=== PATIENT | female | born 1935 | race Caucasian/White ===

== ENCOUNTER 2017-03-11 09:03 | Inpatient (IN) | payer OTHER, BC ==
[~2017-03-11] VITALS: Ht 152.4 cm; Wt 58.3 kg
--- NOTE | ~2017-03-11 | HC ---
[facility] [place] [address] CONSULTATION Name: JASON JENKINS Room #: 437-P ADM IN M.R.#: [id number] Admission: 03/11/17 Attend Phys: Grover Adorno DO Discharge: Date of : 37 Report #: [id number] THIS REPORT FOR: //name// CC: Venkata Alcantara MD [facility] Grover Jones MD PRIMARY CARE PHYSICIAN: John Jones M.D. HISTORY OF PRESENT ILLNESS: The patient is a 81-year-old single white female who I was asked to see in the hospital today after she had a fall. The patient has an extensive past medical history. She has a long history of coronary artery disease. She apparently had a previous myocardial infarction in 2002 and had a coronary stent placed at [facility]. She previously was followed by Dr. Sandoval. She had another myocardial infarction in 2008 and underwent balloon angioplasty. Recently she has been followed by my partner, Dr. Smart. She was admitted here to [facility] in 2012 with unstable angina. She underwent a cardiac catheterization by Dr. Neri. There was no significant restenosis of the stents in the LAD diagonal or right coronary artery. Ejection fraction normal. It was recommended she be treated medically. The patient was last admitted here to [facility] in 2014 after an exacerbation of a COPD. She last saw Dr. Smart in the cardiology clinic in October when she was doing well. She actually underwent a nuclear stress test in November of this year that showed no evidence of ischemia with an ejection fraction of 74%. The patient has dementia and uses a walker. She does fall frequently. According to the daughter who is present, she was actually just admitted to [facility] a month ago with blurred vision. She is felt to have had a TIA. Neurology recommended Plavix, but Dr. Smart thought that she was at risk for bleeding. She was sent to rehab and is now back home. Unfortunately yesterday, the patient was in the bathroom, got up from the bathroom and fell. Paramedics were called. She was brought here to [facility] by ambulance. She is found to have a fracture. I was asked to see her preop evaluation. The patient has had no significant chest pain, shortness of breath, palpitations, increasing edema. PAST MEDICAL HISTORY: Otherwise significant for hysterectomy, cholecystectomy, cataract extraction, bladder sling, right ankle fracture, hypertension, and hyperlipidemia. CURRENT MEDICATIONS: Consists of Lipitor, Paxil. She is no longer on lisinopril. ALLERGIES: She has a previous intolerance to ASPIRIN, PENICILLIN, and CODEINE. FAMILY HISTORY: No history of heart disease. [facility] [address] [place] [address] CONSULTATION Name: JASON JENKINS QUIN Room #: 437-P [facility] IN M.R.#: [id number] Admission: 03/11/17 Attend Phys: Grover Adorno DO Discharge: Date of : 37 Report #: [id number] SOCIAL HISTORY: She is , currently lives with her daughter in [place], [place]. She recently quit smoking although she has been a smoker for years. No alcohol abuse. REVIEW OF SYSTEMS: She has had a history of peptic ulcer in the past. No liver disease, no kidney disease, no cancer. No psychiatric illness. No chronic skin condition. PHYSICAL EXAMINATION: GENERAL: Revealed an elderly female lying in bed. She appeared in no distress. VITAL SIGNS: She had a blood pressure of 160/80, pulse is 68. She was afebrile. HEENT: She was anicteric. Conjunctivae are pink. Mucous membranes are moist. NECK: Veins do not appear distended. No carotid bruits. CHEST: Clear to auscultation. CARDIOVASCULAR: Regular rate and rhythm. ABDOMEN: Soft. EXTREMITIES: Had no edema. Dorsalis pedis pulses cannot be palpated. SKIN: Cool and dry. NEUROLOGIC: The patient was not oriented to place or time. PSYCHIATRIC: Mood appeared appropriate. LABORATORY DATA: Her ECG showed a sinus rhythm, occasional PVC. 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 She had multiple x-rays since she came in yesterday and included a chest x-ray that showed normal heart size and clear lung chapa. CT scan of the head performed without contrast showed no acute abnormality. Lab work, sodium 130, potassium 3.7, creatinine 1.2, glucose 79. White blood cell count 4.7, hematocrit 32. IMPRESSION AND RECOMMENDATION: 1. Recurrent fall. Recommend a walker. 2. Hip fracture. Apparently, a conservative approach as planned. The patient would be at risk for cardiac complications of surgery due to her extensive smoking history and a history of coronary artery disease. I would try to avoid surgery if possible. 3. Hypertension. I would recommend resuming her ORQUIDEA inhibitor. 4. Recent transient ischemic attack. I did recommend 81 mg of aspirin a day and hoped that the patient will be able to tolerate it. 5. Hyperlipidemia. I would recommend a statin drug. 6. Previous tobacco abuse. Fortunately, the patient just recently stopped [facility] [address] [place] [address] CONSULTATION Name: JASON JENKINS QUIN Room #: 437-P ADM IN M.R.#: [id number] Admission: 03/11/17 Attend Phys: Grover Adorno DO Discharge: Date of : 37 Report #: [id number] smoking. 7. Dementia. The patient cannot live by herself anymore. <ELECTRONICALLY SIGNED> By: Venkata Alcantara MD, FACC 03/16/17811 1431 1913 Venkata Alcantara MD, FACC /nt
--- NOTE | ~2017-03-11 | O ---
[facility] [place] [address] OPERATIVE REPORT Name: JASON JENKINS Room #: 437-P ADM IN M.R.#: [id number] Admission: 03/11/17 Attend Phys: Grover Adorno DO Discharge: Date of : 37 Report #: [id number] THIS REPORT FOR: //name// CC: Grover Jones DATE OF SERVICE: 03/16/2017 PREOPERATIVE DIAGNOSIS: Displaced unstable left proximal femoral neck fracture. POSTOPERATIVE DIAGNOSIS: Displaced unstable left proximal femoral neck fracture. PROCEDURE: Left proximal femoral hemiarthroplasty. SURGEON: Venkata Louise M.D. INDICATIONS: This 81-year-old female is frail and has mild dementia. She fell injuring the left hip, initially x-rays reveal a slightly impacted but well-aligned high femoral neck fracture. I discussed with the patient and her family treatment options and they elected to try to avoid surgery and continue nonsurgical management. We have tried to mobilize her gently, but followup x-rays now reveal the femoral head to be displaced and clearly unstable. Given this, I have discussed again with the patient and her daughters treatment options and they have elected to go ahead with a cemented hemiarthroplasty of the left hip at this time. DESCRIPTION OF PROCEDURE: The patient was taken to the operating room where she is placed under general anesthesia. Prophylactic intravenous antibiotics were administered. She was turned to the right lateral decubitus position. The left hip, thigh and leg were meticulously prepped and draped. A slightly curving skin incision was made centered over the greater trochanter and extending posteriorly. This was carried through gluteus and fascia to expose the posterior aspect of the hip joint. The short external rotators and capsule were taken down and tagged with several #1 Tevdek sutures. The femoral neck was found to be fractured and unstable. The head was removed and measured at 45 mm in diameter. The neck was trimmed down to an appropriate level and the canal opened with reamers and hand broaches. The Ignacio Secur-Fit stem system was utilized and it appeared that a size 5 cemented stem fit most appropriately. A trial reduction was performed and a +0 mm neck length combined with a 45 mm bipolar head fit nicely. This resulted in good alignment, range of motion, stability and leg length. The trial components were removed. The canal was thoroughly irrigated and dried. A cement restrictor was placed. Methyl methacrylate cement was mixed and injected into the femoral canal. The Ignacio size 5 cement stem was inserted, placing this in about 15-20 degrees of anteversion. Excess cement was removed from . A +0 neck length with a [facility] [address] [place] [address] OPERATIVE REPORT Name: JASON JENKINS Room #: 437-P [facility] IN M.R.#: [id number] Admission: 03/11/17 Attend Phys: Grover Adorno DO Discharge: Date of : 37 Report #: [id number] 45-mm bipolar head was then inserted. The hip was reduced. Alignment, range of motion, stability and leg lengths were once again assessed and felt to be satisfactory. The capsule and short external rotators were repaired back to the bone using #1 Tevdek sutures, passed through drill holes in the greater trochanter. This added significant hip stability. A single Hemovac was left deep to the fascia exiting through a separate stab incision. The fascia was then closed with multiple #1 Vicryl sutures. The subcutaneous tissues were closed with 0 Monocryl and the skin was closed with skin jasbir. A sterile dressing was applied, and the patient was awakened and returned to recovery room in good condition. <ELECTRONICALLY SIGNED> By: Venkata Louise MD 03/21/17 0740 1327 1404 Venkata Louise MD /nt
--- NOTE | ~2017-03-11 | HC ---
[facility] [place] [address] CONSULTATION Name: JASON JENKINS Room #: 437-P ADM IN M.R.#: [id number] Admission: 03/11/17 Attend Phys: Grover Adorno DO Discharge: Date of : 37 Report #: [id number] THIS REPORT FOR: //name// CC: Grover Jones DATE OF SERVICE: 03/11/2017 CHIEF COMPLAINT: Left femoral neck fracture. HISTORY OF PRESENT ILLNESS: This 81-year-old female lives with family assistance at home. She has some chronic medical problems including history of cardiac disease with IA and several stents. She also is somewhat weak and frail. Family states that she has been ambulatory with a walker and some assistance. She has balance problems and some weakness. She apparently fell at home injuring the left hip and came to the hospital today. X-rays here including plain x-rays and CT scan reveal a mildly impacted fracture of the left femoral neck. No other fractures are identified. At the time of my evaluation, the patient's family is not present, but I have spoken with them by phone. The patient is mildly confused, but is responsive to my questions. She denies any other areas of significant discomfort and complains of only mild left hip pain. She seems to have good movement of both upper extremities without much discomfort. She notes a bit of right-sided anterior chest wall pain, but this is mild. She is not having any neck, mid back or low back discomfort. The right lower extremity seems to be stable and demonstrates satisfactory alignment and range of motion without much discomfort. The left lower extremity also appears to be in normal alignment. She has satisfactory range of motion of the left hip, but there is mild discomfort with rotation. There is no obvious instability, deformity or shortening. She notes a bit of pain radiating toward the mid thigh, but no pain below the knee. The left knee demonstrates satisfactory alignment and range of motion without much discomfort. Distal left lower extremity appears to be normal. X-rays of the pelvis and left hip and left femur as well as CT scan confirmed what appears to be a very mildly impacted fracture of the left femoral neck in slight valgus position. This appears to be stable with only minimal displacement. There is mild degenerative change at the left hip, but no other significant structural abnormalities. The surrounding bone appears to be intact. IMPRESSION AND PLAN: Mildly impacted stable left femoral neck fracture. I have discussed this with the patient and also with her daughter by phone. I have explained that we may consider either nonsurgical management with partial weightbearing protection using a walker for the next 6 weeks or surgical stabilization. I think there is a reasonably good chance the fracture would [address] [address] CONSULTATION Name: JASON JENKINS Room #: 437-P [facility] IN M.R.#: [id number] Admission: 03/11/17 Attend Phys: Grover Adorno DO Discharge: Date of : 37 Report #: [id number] heal in. If she can avoid excessive weightbearing or new falls, we could certainly improve the likelihood of successful union by placing 2 or 3 percutaneous screws. If this approach fails or family wants to be more conservative, then hemiarthroplasty would be a more definitive procedure, which would allow her to bear full weight without much risk. I have discussed these with the patient and family reviewing the potential advantages and disadvantages of each. At this point, they are uncertain what they would like to do, but seem all much more in favor of nonsurgical management. They note that she really is not having marked discomfort and apparently are concerned about any anesthetic and surgery. They are hopeful that this could be managed without surgical intervention even minor repair with percutaneous screws. Given this, they would prefer to talk with the rest of the family and talk together with the patient tomorrow before making any decisions. I do not think we will make any plans for any surgery tomorrow. I will talk with the patient and family again tomorrow. If they decide to go ahead with either percutaneous screw stabilization or hemiarthroplasty, then we could proceed on Monday if or schedule will allow. In the interim, this should give sufficient time for cardiac clearance and any other general medical workup. Thank you for allowing me to participate in her care. <ELECTRONICALLY SIGNED> By: Venkata Louise MD 03/12/17 1051 1721 1918 Venkata Louise MD /nt
--- NOTE | ~2017-03-11 | HC ---
[facility] [place] [address] CONSULTATION Name: JENKINSJASON BOYD QUIN Room #: 437-P ADM IN M.R.#: [id number] Admission: 03/11/17 Attend Phys: Grover Adorno DO Discharge: Date of : 37 Report #: [id number] THIS REPORT FOR: //name// CC: Grover Jones HISTORY OF PRESENT ILLNESS: The patient is a 81-year-old white female who had problems with feeling dizzy, fell on her left side. She sustained a left mildly impacted stable left femoral neck fracture. Orthopedics has seen her. Options have been discussed, but at the current time it looks like the plan is for conservative management with weightbearing on that left lower extremity less than 20 pounds. We are seeing her in rehabilitation medicine consultation. PAST MEDICAL HISTORY: Includes prior [place] in 2002, with stenting at [facility]. She had a TIA approximately a month ago and apparently was on the rehab eaton at [facility]. From there, she was able to discharge back home. Past medical history otherwise includes COPD, cardiac stents times 3, [place] times 1, hypertension and migraines. PAST SURGICAL HISTORY: Includes cholecystectomy, hysterectomy, compression fracture of the spine, shattered right ankle with plate and 10 screws. HABITS: Former smoker, quit less than equal to a year. No history of alcohol use. FAMILY HISTORY: Includes heart disease, mother and father and diabetes, brother. Recreational drug abuse, no. ALLERGIES: ASPIRIN, CODEINE, Motrin, IODINE, and LATEX allergy. SOCIAL HISTORY: Daughter lives with her, [place], [place], house 4 steps in. She did not utilize gait aids typically premorbidly. REVIEW OF SYSTEMS: No complaints of chest pain, shortness of breath, or abdominal discomfort. No complaints of appetite change. No diaphoresis. No headache. No symptoms or focal extremity pain complaints other than the noted left hip discomfort, which appears relatively mild. PHYSICAL EXAMINATION: GENERAL: Small statured, thin 81-year-old white female, in no obvious distress. The patient is alert. She is pleasant. VITAL SIGNS: Last recorded temperature 98, pulse 76, respirations 20, and blood pressure 115/69. HEENT: Appeared to be benign. NEUROLOGIC: Cranial nerves are grossly intact. Facies are symmetric. She has some mild confusion as to where she is, but she is cooperative. She is on nasal prong O2. EXTREMITIES: Functional range of motion of both upper extremities with strength grade 4-/5. DTRs are trace to 1. Lower extremities, no focal calf swelling, functional range of motion. Strength is grade 4-/5. There is no distal lower extremity [facility] [address] [place] [address] CONSULTATION Name: JASON JENKINS Room #: 437-P [facility] IN M.R.#: [id number] Admission: 03/11/17 Attend Phys: Gorver Adorno DO Discharge: Date of : 37 Report #: [id number] edema. Lower extremities appear warm and well perfused. She is min assist with sit to stand and is ambulating 15 feet min assist with a front-wheeled walker. She has some difficulty maintaining her weightbearing precautions after the first couple hops. ASSESSMENT: A 81-year-old white female with the following problem list: 1. Left femoral neck fracture noted to be mildly impacted, is limited to less than 20 pounds weightbearing. 2. Coronary artery disease with prior myocardial infarction and stenting. 3. Recent transient ischemic attack. 4. Dehydration. 5. Hypertension. 6. Chronic obstructive pulmonary disease. PLAN: Unfortunatley the patient would not meet criteria for another acute in-hospital inpatient rehabilitation stay. We would agree with half-way facility options as you are considering. Thank you for asking us to assist in this patient's care. <ELECTRONICALLY SIGNED> By: Venkata Delgado MD 03/17/17 1551 1109 1327 Venkata Delgado MD /nt
--- NOTE | ~2017-03-11 | EKG ---
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 : 1935 Requested By: Johanna Landry Order Number: [id number] MD: Kofi Loco Measurements Intervals [place] Rate: 75 P: 63 MS: 215 QRS: -52 QRSD: 133 T: 31 QT: 438 QTc: 490 Interpretive Statements Sinus rhythm Multiple ventricular premature complexes Borderline prolonged MS interval Probable left atrial enlargement RBBB and LAFB Compared to ECG 05/07/2016 13:41:14 Ventricular premature complex(es) now present Electronically Signed On 03-12-2017 11:45:55 CDT by Kofi Loco [email or web address] <ELECTRONICALLY SIGNED> By: Kofi Loco MD, [facility] 03/12/17 1145 0933 0933 Kofi Loco MD, [facility] /EPI
[~2017-03-11 09:03] MED LIST: ACETAMINOPHEN325 M1 PO; ADVAIR HFA115 MCG/21 INH; AMOXICILLIN500 M1 PO; AZITHROMYCIN 2250 MG PO; BOOST237 M1 PO; CALCIUM 600 +1 EAC8 PO; CEPACOL SORE T1 EAC7 MM; CEPACOL SORE T1 EAC8 PO; COLACE100 MG PO; COZAAR 50 MG TA50 M1 PO; DICLOFENAC NA PO; DOXYCYCLINE 10100 M1 PO; DOXYCYCLINE 10100 MG PO; DUONEB 2.5-0.5 M3 ML INH; FLAGYL500 MG PO; HAIR SKIN NAIL1 EACH PO; HAIR, SKIN & N1 EAC1 PO; HYDROCHLOROTH12.5 M1 PO; HYDROCHLOROTH12.5 M2 PO; HYDROCHLOROTH12.5 MG PO; HYDROCHLOROTHIA25 M2 GT; HYDROCHLOROTHIA25 M2 PO; IPRAT-ALBUT 0.5-3 ML IH; LASIX 20 MG TAB20 MG PO; LEVAQUIN 500 M500 M1 PO; LEVAQUIN 500 M500 M4 PO; LIDODERM 5%1 PATC1 TRANSDERM; LISINOPRIL10 MG PO; LISINOPRIL20 MG PO; MAPAP500 M1 PO; MELATONIN3 MG; METOPROLOL SUCC25 M1 PO; MILK OF MA2400 MG/10 PO; MOM PO; MUCINEX TA600 MG/TA1 PO; MULTI VITAMIN1 EACH PO; NITROGLYCERIN0.4 MG SUBLING; NORCO 5-325 TA1 EACH PO; NORVASC5 MG PO; OMEGA-31000 M1 PO; OMEPRAZOLE20 M2 PO; PLAVIX 75 MG TA75 M1 PO; PREDNISONE 10 M10 MG PO; PREDNISONE 20 M20 M1 PO; PREDNISONE 20 M20 MG PO; PRILOSEC20 MG PO; PRINIVIL20 MG PO; PROTONIX40 M1 PO; ROBAXIN 750 MG750 M1 PO; SIMVASTATIN40 MG PO; TRAMADOL 50 MG50 MG PO; TYLENOL325 MG PO; ULTRAM 50MG TAB50 MG PO; VENTOLIN HFA 1818 GM INH; VOLTAREN GEL 1100 G2 PO; XANAX 0.25 MG0.25 MG PO; ZPAK PO
[2017-03-11 09:05] VITALS: BP 169/81
[2017-03-11 09:44] LABS: ABSOLUTE NEUTROPHILS 4.1 thou/uL (1.4-8.2); BASOPHILS 1.2 % (0.0-2.0); EOSINOPHILS 5.6 % (0.0-3.0); HEMATOCRIT 36.4 % (37.0-47.0); HEMOGLOBIN 12.1 gm/dL (12.0-15.0); LYMPHOCYTES 16.6 % (24.0-44.0); MCH 30.5 pg (26.0-34.0); MCHC 33.3 g/dL (28.0-37.0); MCV 91.5 fL (80.0-100.0); MONOCYTES 9.1 % (1.0-8.0); PLATELET COUNT 230 thou/uL (150-400); POLYS 67.5 % (36.0-66.0); RBC 3.98 mil/uL (4.20-5.00); RDW 13.8 % (10.5-14.5); WBC 6.1 thou/uL (4.0-11.0)
[2017-03-11 09:45] LABS: MANUAL DIFF NO
[2017-03-11 09:50] LABS: CREATININE 1.2 mg/dL (0.6-1.0); POTASSIUM 3.7 mmol/L (3.5-5.1)
[2017-03-11] MEDS ORDERED: ATORVASTATIN CA40 MG PO (10:40)
[2017-03-11] MEDS ORDERED: APAP650 PO (10:40)
[2017-03-11] MEDS ORDERED: TUMS ULTRA400 MG PO (10:41)
[2017-03-11] MEDS ORDERED: PLAVIX 75 MG TA75 M1 PO (10:42)
[2017-03-11] MEDS ORDERED: VITAMIN D1000 UNI1 PO (10:42)
[2017-03-11] MEDS ORDERED: B12INJ PO (10:42)
[2017-03-11] MEDS ORDERED: RAZADYNE ER16 MG PO (10:43)
[2017-03-11] MEDS ORDERED: ALLFEN400 MG PO (10:44)
[2017-03-11] MEDS ORDERED: PAXIL10 MG PO (10:45)
[2017-03-11] MEDS ORDERED: MELATONIN3 MG PO (10:45)
[2017-03-11 12:14] VITALS: BP 157/68
[2017-03-11 12:42] VITALS: BP 166/89
[2017-03-11 16:16] VITALS: BP 177/57
[2017-03-11 19:00] VITALS: BP 149/73
[2017-03-11 23:55] VITALS: BP 170/79
[2017-03-12 03:41] VITALS: BP 142/74
[2017-03-12 05:18] LABS: ABSOLUTE NEUTROPHILS 2.8 thou/uL (1.4-8.2); BASOPHILS 1.3 % (0.0-2.0); EOSINOPHILS 7.3 % (0.0-3.0); HEMATOCRIT 32.1 % (37.0-47.0); LYMPHOCYTES 20.6 % (24.0-44.0); MCHC 34.2 g/dL (28.0-37.0); MCV 90.6 fL (80.0-100.0); MONOCYTES 10.2 % (1.0-8.0); PLATELET COUNT 200 thou/uL (150-400); POLYS 60.6 % (36.0-66.0); RBC 3.54 mil/uL (4.20-5.00); RDW 13.8 % (10.5-14.5); WBC 4.7 thou/uL (4.0-11.0)
[2017-03-12 05:22] LABS: MANUAL DIFF NO
[2017-03-12 05:27] LABS: CALCIUM 8.2 mg/dL (8.5-10.1); CREATININE 1.2 mg/dL (0.6-1.0); POTASSIUM 3.7 mmol/L (3.5-5.1)
[2017-03-12 08:36] VITALS: BP 172/90
[2017-03-12 16:36] VITALS: BP 142/69
[2017-03-12 19:36] VITALS: BP 189/88
[2017-03-13 00:36] VITALS: BP 134/86
[2017-03-13 04:21] VITALS: BP 170/88
[2017-03-13 05:59] LABS: ABSOLUTE NEUTROPHILS 3.7 thou/uL (1.4-8.2); BASOPHILS 0.8 % (0.0-2.0); EOSINOPHILS 7.7 % (0.0-3.0); HEMATOCRIT 33.7 % (37.0-47.0); HEMOGLOBIN 11.7 gm/dL (12.0-15.0); MCHC 34.6 g/dL (28.0-37.0); MCV 89.4 fL (80.0-100.0); MONOCYTES 9.5 % (1.0-8.0); PLATELET COUNT 211 thou/uL (150-400); RBC 3.76 mil/uL (4.20-5.00); RDW 13.9 % (10.5-14.5); WBC 5.9 thou/uL (4.0-11.0)
[2017-03-13 06:01] LABS: MANUAL DIFF NO
[2017-03-13 06:06] LABS: CALCIUM 8.4 mg/dL (8.5-10.1); CREATININE 1.2 mg/dL (0.6-1.0); POTASSIUM 3.8 mmol/L (3.5-5.1)
[2017-03-13 08:00] VITALS: BP 115/69
[2017-03-13 16:00] VITALS: BP 130/79
[2017-03-13 20:14] VITALS: BP 156/79
[2017-03-14 05:15] VITALS: BP 138/65
[2017-03-14 07:05] LABS: MCH 30.7 pg (26.0-34.0); WBC 7.1 thou/uL (4.0-11.0)
[2017-03-14 07:07] LABS: ABSOLUTE NEUTROPHILS 5.2 thou/uL (1.4-8.2); BASOPHILS 0.6 % (0.0-2.0); EOSINOPHILS 2.9 % (0.0-3.0); HEMATOCRIT 34.2 % (37.0-47.0); HEMOGLOBIN 11.8 gm/dL (12.0-15.0); LYMPHOCYTES 14.4 % (24.0-44.0); MCHC 34.6 g/dL (28.0-37.0); MCV 88.8 fL (80.0-100.0); MONOCYTES 8.3 % (1.0-8.0); PLATELET COUNT 231 thou/uL (150-400); POLYS 73.8 % (36.0-66.0); RBC 3.85 mil/uL (4.20-5.00)
[2017-03-14 07:09] LABS: MANUAL DIFF NO
[2017-03-14 07:15] LABS: CALCIUM 8.6 mg/dL (8.5-10.1); CREATININE 1.1 mg/dL (0.6-1.0); POTASSIUM 3.9 mmol/L (3.5-5.1)
[2017-03-14 07:24] VITALS: BP 172/84
[2017-03-14 12:33] VITALS: BP 194/64
[2017-03-14 15:46] VITALS: BP 149/82
[2017-03-14 19:29] VITALS: BP 1867/98; BP 187/98
[2017-03-15 00:28] VITALS: BP 139/77
[2017-03-15 03:36] VITALS: BP 146/70
[2017-03-15 08:00] VITALS: BP 127/96
[2017-03-15] MEDS ORDERED: ENOXAPARIN30 MG/0.1 SUBQ (11:38)
[2017-03-15] MEDS ORDERED: ALTACE10 MG PO (11:38)
[2017-03-15 16:18] VITALS: BP 194/92
[2017-03-15 19:38] VITALS: BP 124/62
[2017-03-16] VITALS (11 sets, daily range): BP systolic 92–161; BP diastolic 58–95
[2017-03-16 08:44] LABS: ABSOLUTE NEUTROPHILS 4.6 thou/uL (1.4-8.2); BASOPHILS 0.6 % (0.0-2.0); EOSINOPHILS 2.4 % (0.0-3.0); HEMATOCRIT 32.7 % (37.0-47.0); HEMOGLOBIN 11.3 gm/dL (12.0-15.0); LYMPHOCYTES 13.4 % (24.0-44.0); MCH 30.8 pg (26.0-34.0); MCHC 34.7 g/dL (28.0-37.0); PLATELET COUNT 252 thou/uL (150-400); POLYS 71.6 % (36.0-66.0); RBC 3.68 mil/uL (4.20-5.00); RDW 13.9 % (10.5-14.5); WBC 6.5 thou/uL (4.0-11.0)
[2017-03-16 08:51] LABS: CALCIUM 8.6 mg/dL (8.5-10.1); CREATININE 1.3 mg/dL (0.6-1.0); POTASSIUM 3.7 mmol/L (3.5-5.1)
[2017-03-16 09:06] LABS: MANUAL DIFF NO
[2017-03-16 18:52] LABS: HEMATOCRIT 29.2 % (37.0-47.0); HEMOGLOBIN 9.9 gm/dL (12.0-15.0); MCH 30.6 pg (26.0-34.0); RBC 3.24 mil/uL (4.20-5.00); RDW 13.6 % (10.5-14.5); WBC 10.7 thou/uL (4.0-11.0)
[2017-03-17 04:22] VITALS: BP 104/57
[2017-03-17 06:28] LABS: HEMATOCRIT 23.5 % (37.0-47.0); MCH 30.5 pg (26.0-34.0); MCHC 34.1 g/dL (28.0-37.0); MCV 89.6 fL (80.0-100.0); RBC 2.63 mil/uL (4.20-5.00); RDW 13.4 % (10.5-14.5); WBC 7.2 thou/uL (4.0-11.0)
[2017-03-17 08:00] VITALS: BP 122/68
[2017-03-17 17:00] VITALS: BP 104/58
[2017-03-17 19:49] VITALS: BP 118/69
[2017-03-18 03:15] LABS: HEMATOCRIT 21.1 % (37.0-47.0); HEMOGLOBIN 7.4 gm/dL (12.0-15.0); MCH 30.9 pg (26.0-34.0); MCHC 34.9 g/dL (28.0-37.0); MCV 88.6 fL (80.0-100.0); RBC 2.38 mil/uL (4.20-5.00); RDW 13.4 % (10.5-14.5); WBC 7.5 thou/uL (4.0-11.0)
[2017-03-18 04:00] VITALS: BP 120/59
[2017-03-18 07:18] VITALS: BP 134/70
[2017-03-18 12:30] LABS: HEMATOCRIT 22.3 % (37.0-47.0); HEMOGLOBIN 7.8 gm/dL (12.0-15.0); MCH 30.7 pg (26.0-34.0); MCHC 34.7 g/dL (28.0-37.0); MCV 88.3 fL (80.0-100.0); RBC 2.53 mil/uL (4.20-5.00); RDW 13.6 % (10.5-14.5); WBC 7.1 thou/uL (4.0-11.0)
[2017-03-18 12:33] LABS: CALCIUM 8.1 mg/dL (8.5-10.1); CREATININE 1.2 mg/dL (0.6-1.0); POTASSIUM 3.9 mmol/L (3.5-5.1)
[2017-03-18 15:27] VITALS: BP 116/63
[2017-03-18 19:25] VITALS: BP 102/56; BP 107/56
[2017-03-19 03:40] VITALS: BP 163/74
[2017-03-19 05:40] LABS: HEMATOCRIT 21.3 % (37.0-47.0); HEMOGLOBIN 7.4 gm/dL (12.0-15.0); MCH 30.7 pg (26.0-34.0); MCHC 34.5 g/dL (28.0-37.0); RBC 2.39 mil/uL (4.20-5.00); RDW 13.5 % (10.5-14.5); WBC 7.1 thou/uL (4.0-11.0)
[2017-03-19 05:50] LABS: CALCIUM 7.8 mg/dL (8.5-10.1); POTASSIUM 3.7 mmol/L (3.5-5.1)
[2017-03-19 09:00] VITALS: BP 152/87
[2017-03-19 16:13] VITALS: BP 157/93
[2017-03-19 19:36] VITALS: BP 143/67
[2017-03-20 03:58] VITALS: BP 143/80
[2017-03-20 06:17] LABS: MCHC 35.2 g/dL (28.0-37.0); MCV 88.3 fL (80.0-100.0); RBC 2.2 mil/uL (4.20-5.00); RDW 13.5 % (10.5-14.5); WBC 5.9 thou/uL (4.0-11.0)
[2017-03-20 06:22] LABS: HEMOGLOBIN 6.8 gm/dL (12.0-15.0)
[2017-03-20 06:23] LABS: HEMATOCRIT 19.4 % (37.0-47.0)
[2017-03-20 06:27] LABS: CALCIUM 7.8 mg/dL (8.5-10.1); POTASSIUM 3.8 mmol/L (3.5-5.1)
[2017-03-20 08:00] VITALS: BP 153/82
[2017-03-20 15:12] VITALS: BP 127/56
[2017-03-20 15:17] VITALS: BP 125/48; BP 139/64
[2017-03-20 18:43] VITALS: BP 139/64
[2017-03-20 19:51] VITALS: BP 134/67
[2017-03-21 03:47] VITALS: BP 180/99
[2017-03-21 04:48] LABS: HEMATOCRIT 23.7 % (37.0-47.0); HEMOGLOBIN 8.3 gm/dL (12.0-15.0); MCH 30.8 pg (26.0-34.0); MCHC 34.9 g/dL (28.0-37.0); MCV 88.3 fL (80.0-100.0); RBC 2.68 mil/uL (4.20-5.00); RDW 13.3 % (10.5-14.5); WBC 7.8 thou/uL (4.0-11.0)
[2017-03-21 04:54] LABS: CALCIUM 7.9 mg/dL (8.5-10.1); POTASSIUM 4.1 mmol/L (3.5-5.1)
[2017-03-21 08:11] VITALS: BP 151/77
[2017-03-21 10:18] VITALS: BP 151/77
== END 2017-03-21 16:07 | DRG 469 ==
LOC: ER 09:03 → EROBS 11:27 → 4S 11:27
PROVIDERS: Family Medicine; Internal Medicine; Nurse Practitioner Family; Orthopaedic Surgery
PROC: 0SRS0J9 Replacement of Left Hip Joint, Femoral Surface with Synthetic Substitute, Cemented, Open Approach (ICD-10-PCS; principal; 2017-03-16)
PROC: 30233N1 Transfusion of Nonautologous Red Blood Cells into Peripheral Vein, Percutaneous Approach (ICD-10-PCS; 2017-03-20)
DX: S72.002A Fracture of unspecified part of neck of left femur, initial encounter for closed fracture (principal); G93.40 Encephalopathy, unspecified; E87.1 Hypo-osmolality and hyponatremia; D62 Acute posthemorrhagic anemia; I10 Essential (primary) hypertension; G43.909 Migraine, unspecified, not intractable, without status migrainosus; I25.10 Atherosclerotic heart disease of native coronary artery without angina pectoris; E78.5 Hyperlipidemia, unspecified; F03.90 Unspecified dementia, unspecified severity, without behavioral disturbance, psychotic disturbance, mood disturbance, and anxiety; J44.9 Chronic obstructive pulmonary disease, unspecified; E86.0 Dehydration; R41.0 Disorientation, unspecified; Z95.5 Presence of coronary angioplasty implant and graft; I25.2 Old myocardial infarction; Z90.710 Acquired absence of both cervix and uterus; Z90.49 Acquired absence of other specified parts of digestive tract; Z88.6 Allergy status to analgesic agent; Z91.041 Radiographic dye allergy status; Z91.040 Latex allergy status; Z98.49 Cataract extraction status, unspecified eye; Z86.73 Personal history of transient ischemic attack (TIA), and cerebral infarction without residual deficits; Z87.891 Personal history of nicotine dependence; Z83.3 Family history of diabetes mellitus; Z95.1 Presence of aortocoronary bypass graft; Z79.82 Long term (current) use of aspirin; Z79.899 Other long term (current) drug therapy; Z82.49 Family history of ischemic heart disease and other diseases of the circulatory system; W18.39XA Other fall on same level, initial encounter; Y93.89 Activity, other specified; Y92.89 Other specified places as the place of occurrence of the external cause; Y99.8 Other external cause status
CPT/HCPCS: 10100; 50010; 50101; 50382; 50414; 51057; 51130; 51225; 51412; 53000; 55381; 56521; 56525; 56527; 62110; 62900; 70005

== ENCOUNTER 2017-03-24 16:54 | Inpatient (IN) | payer OTHER, BC ==
[~2017-03-24] VITALS: Ht 162.6 cm; Wt 86.8 kg
--- NOTE | ~2017-03-24 | EKG ---
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 ARRIAGA : 1935 Requested By: Meghan Fernandez Order Number: [id number] MD: Kofi Loco Measurements Intervals [place] Rate: 89 P: 44 [place]: 224 QRS: 246 QRSD: 134 T: 3 QT: 400 QTc: 487 Interpretive Statements Sinus rhythm Prolonged [place] interval Incomplete RBBB Compared to ECG 03/11/2017 09:33:07 Ventricular premature complex(es) no longer present Electronically Signed On 03-25-2017 16:41:58 CDT by Kofi Loco [email or web address] <ELECTRONICALLY SIGNED> By: Kofi Loco MD, [facility] 03/25/17 1641 1714 1714 Kofi Loco MD, [facility] /EPI
--- NOTE | ~2017-03-24 | H ---
[facility] [place] [address] HISTORY AND PHYSICAL Name: JASON JENKINS Room #: 440-P ADM IN M.R.#: [id number] Admission: 03/24/17 Attend Phys: Iraj Downs MD Discharge: Date of : 37 Report #: [id number] THIS REPORT FOR: //name// CC: Sophia Downs DATE OF SERVICE: 03/24/2017 CHIEF COMPLAINT: Weakness and low hemoglobin. HISTORY OF PRESENT ILLNESS: The patient is a 81-year-old female with history of dementia, coronary artery disease, status post stent, hypertension, and COPD, was referred from rehab center secondary to low hemoglobin. The patient had a stroke on 02/20/2017. The patient was admitted end of February here for syncope and left femoral neck fracture. The patient underwent left hip hemiarthroplasty on 03/16/2017. Postoperatively, the patient had anemia secondary to acute blood loss. Her hemoglobin on 03/16/2017, was 11.3. Postoperatively, she dropped to 9.9. Her hemoglobin did drop all the way down to 6.8, on 03/20/2017. The patient received a unit of packed RBC. Repeat hemoglobin on 03/21/2017, was 8.3. Subsequently, the patient was transferred to a prison unit for physical therapy. According to the patient's daughter, the patient has been mostly staying in the bed. Apparently, she has felt a little better over the last couple of days. The patient complains of generalized weakness. At present, the patient denies any dizziness or shortness of breath. Her hemoglobin at the prison unit was 7.2, which prompted them to send her to the emergency room. In the ER, her hemoglobin is 7.6. The patient denies any chest pain. PAST MEDICAL HISTORY: Significant for hypertension, coronary artery disease status post stent, COPD, hysterectomy, cholecystectomy, spine fracture, right ankle fracture, migraine headache. FAMILY HISTORY: Significant for heart disease and diabetes. SOCIAL HISTORY: Former smoker. No alcohol abuse or illicit drug abuse. HOME MEDICATIONS: Reviewed. ALLERGIES: She is allergic to IODINE, CODEINE, IBUPROFEN, LATEX allergy. Please look at the nursing documentation for the reaction. REVIEW OF SYSTEMS: CONSTITUTIONAL: She has gained some weight. No fever or chills. EYES: No change in vision. THROAT: Denies any sore throat. [facility] [address] [place] [address] HISTORY AND PHYSICAL Name: JASON JENKINS [facility] Room #: 440-P [facility] IN .R.#: [id number] Admission: 03/24/17 Attend Phys: Iraj Downs MD Discharge: Date of : 37 Report #: [id number] CARDIOVASCULAR: No chest pain or dizziness. MUSCULOSKELETAL: She complains of generalized weakness. RESPIRATORY: No cough or expectoration. GASTROINTESTINAL: No nausea, vomiting. No abdominal pain. GENITOURINARY: No dysuria, hematuria. NEUROLOGIC: No focal numbness or weakness of the extremities. PSYCHIATRIC: No anxiety or depression. The 12-point review of system is negative other than the positive and negative dictated in the history of present illness and the review of system. PHYSICAL EXAMINATION: VITAL SIGNS: Reviewed. Blood pressure is 108/63, heart rate of 98 per minute, afebrile. GENERAL: The patient is awake and alert, not in any acute respiratory distress. EYES: Pupils equal, reactive to light, nonicteric conjunctivae. Throat appears normal. NECK: Supple, no JVD, no bruit, no lymphadenopathy. CARDIOVASCULAR SYSTEM: S1, S2, negative S3, no murmur. CHEST: Bilateral air entry present. Clear on auscultation. ABDOMEN: Soft, bowel sounds present, no mass, no organomegaly, no tenderness. PERIPHERY: No pedal edema on the right leg. She has 2 to 3+ edema on the left leg. Dorsalis pedis 1+. Surgical site is clean. No bleeding noted. LABORATORY DATA: Reviewed. Hemoglobin is 7.6 here, white count 9.6. BUN and creatinine are within normal limits. The sodium is 129. She has chronic hyponatremia. Potassium is 3.3, BUN and creatinine are 16 and 1.1. Bilirubin is 1.7. AST and ALT are within normal limit. Platelets are 415. PT, PTT are within normal limits. ASSESSMENT AND PLAN: 1. Anemia, most likely secondary to acute blood loss. The patient will be transfused 1 unit of packed RBC because of her symptomatic anemia. The patient has had generalized weakness. We will repeat her hemoglobin in the morning. We will also check her stool occult blood. I will place her on p.o. Protonix. 2. Left leg swelling. We will obtain venous Doppler of the left leg to rule out any deep venous thrombosis. 3. Hyponatremia which is chronic. We will start her on gentle IV fluid and repeat her labs in the morning. 4. Hypokalemia. Potassium will be replaced. 5. Recent cerebrovascular accident. The patient will be continued on her home medications after they have been reviewed. 6. Deep venous thrombosis prophylaxis. She will be continued on Lovenox for deep venous thrombosis prophylaxis. 7. History of dementia. 8. History of coronary artery disease status post stent, stable. EKG showed sinus rhythm with prolonged MD interval. [address] [address] HISTORY AND PHYSICAL Name: JASON JENKINS QUIN Room #: 440-P [facility] IN M.R.#: [id number] Admission: 03/24/17 Attend Phys: Iraj Downs MD Discharge: Date of : 37 Report #: [id number] 9. History of left hip fracture status post left hemiarthroplasty on 03/16/2017. Treatment plan has been explained to the patient and the daughter at bedside in detail. <ELECTRONICALLY SIGNED> By: Iraj Downs MD 03/25/17 1209 [id number] Iraj Downs MD /nt
[~2017-03-24 16:54] MED LIST changes: +ALLFEN400 MG PO; +ALTACE10 MG PO; +APAP650 PO; +ATORVASTATIN CA40 MG PO; +B12INJ PO; +ENOXAPARIN30 MG/0.1 SUBQ; +MELATONIN3 MG PO; +PAXIL10 MG PO; +RAZADYNE ER16 MG PO; +TUMS ULTRA400 MG PO; +VITAMIN D1000 UNI1 PO
[2017-03-24 16:55] VITALS: BP 108/63
[2017-03-24] MEDS ORDERED: MUCINEX TA600 MG/TA2 PO (17:29)
[2017-03-24] MEDS ORDERED: ACID REDUCER20 MG PO (17:30)
[2017-03-24] MEDS ORDERED: DUONEB 2.5-0.5 M3 ML INH (17:30)
[2017-03-24] MEDS ORDERED: LEVAQUIN 500 M500 M2 PO (17:30)
[2017-03-24 17:35] LABS: BASOPHILS 1.1 % (0.0-2.0); EOSINOPHILS 2.7 % (0.0-3.0); HEMATOCRIT 21.9 % (37.0-47.0); HEMOGLOBIN 7.6 gm/dL (12.0-15.0); LYMPHOCYTES 12.8 % (24.0-44.0); MCH 31.1 pg (26.0-34.0); MCHC 34.6 g/dL (28.0-37.0); MCV 89.7 fL (80.0-100.0); MONOCYTES 9.8 % (1.0-8.0); PLATELET COUNT 415 thou/uL (150-400); POLYS 73.6 % (36.0-66.0); RBC 2.44 mil/uL (4.20-5.00); RDW 14.1 % (10.5-14.5); WBC 9.6 thou/uL (4.0-11.0)
[2017-03-24 17:38] LABS: MANUAL DIFF NO
[2017-03-24 17:41] LABS: ANION GAP 9 mmol/L (7-16); BUN 16 mg/dL (7-18); CALCIUM 8.2 mg/dL (8.5-10.1); CHLORIDE 93 mmol/L (98-107); CO2 27 mmol/L (21-32); CREATININE 1.1 mg/dL (0.6-1.0); GLUCOSE 129 mg/dL (74-106); POTASSIUM 3.3 mmol/L (3.5-5.1); SODIUM 129 mmol/L (136-145)
[2017-03-24 17:45] LABS: PROTIME 10.8 Seconds (9.3-11.4)
[2017-03-24 17:48] LABS: ALBUMIN 2.9 g/dL (3.4-5.0); ALKALINE PHOSPHATASE 76 U/L (46-116); SGOT 25 U/L (15-37); SGPT 22 U/L (30-65); TOTAL BILIRUBIN 1.7 mg/dL (<0.1-1.0); TOTAL PROTEIN 5.9 g/dL (6.4-8.2); TROPONIN-I < 0.04 ng/mL (<0.04-0.07)
[2017-03-24 20:55] VITALS: BP 149/79
[2017-03-24 23:50] VITALS: BP 142/83; BP 153/84
[2017-03-25 03:47] VITALS: BP 134/81; BP 159/92
[2017-03-25 04:08] VITALS: BP 134/81
[2017-03-25 07:28] VITALS: BP 159/92
[2017-03-25 10:51] LABS: ABSOLUTE NEUTROPHILS 5.4 thou/uL (1.4-8.2); BASOPHILS 0.8 % (0.0-2.0); CALCIUM 8.2 mg/dL (8.5-10.1); HEMATOCRIT 28.9 % (37.0-47.0); MAGNESIUM 1.5 mg/dL (1.8-2.4); MCH 30.4 pg (26.0-34.0); MCHC 35.5 g/dL (28.0-37.0); MCV 85.7 fL (80.0-100.0); MONOCYTES 9.3 % (1.0-8.0); PLATELET COUNT 347 thou/uL (150-400); POLYS 75.9 % (36.0-66.0); POTASSIUM 3.5 mmol/L (3.5-5.1); RBC 3.37 mil/uL (4.20-5.00); RDW 16.1 % (10.5-14.5); WBC 7.1 thou/uL (4.0-11.0)
[2017-03-25 10:53] LABS: HEMOGLOBIN 10.2 gm/dL (12.0-15.0)
[2017-03-25 10:54] LABS: MANUAL DIFF NO
[2017-03-25] MEDS ORDERED: HYDROCODON-ACE1 EAC7 PO (11:48)
[2017-03-25 12:23] VITALS: BP 161/85
[2017-03-25] MEDS ORDERED: PROTONIX40 M2 PO (13:01)
[2017-03-25] MEDS ORDERED: IRON325 PO (13:10)
== END 2017-03-25 16:15 | DRG 812 ==
LOC: ER 16:54 → 4S 20:40
PROVIDERS: Emergency Medicine; Internal Medicine; Nurse Practitioner Family
PROC: 30233N1 Transfusion of Nonautologous Red Blood Cells into Peripheral Vein, Percutaneous Approach (ICD-10-PCS; principal; 2017-03-24)
DX: D62 Acute posthemorrhagic anemia (principal); E87.1 Hypo-osmolality and hyponatremia; I10 Essential (primary) hypertension; G43.909 Migraine, unspecified, not intractable, without status migrainosus; F03.90 Unspecified dementia, unspecified severity, without behavioral disturbance, psychotic disturbance, mood disturbance, and anxiety; I25.10 Atherosclerotic heart disease of native coronary artery without angina pectoris; E87.6 Hypokalemia; J44.9 Chronic obstructive pulmonary disease, unspecified; Z98.62 Peripheral vascular angioplasty status; I25.2 Old myocardial infarction; Z90.710 Acquired absence of both cervix and uterus; Z90.49 Acquired absence of other specified parts of digestive tract; Z88.6 Allergy status to analgesic agent; Z86.73 Personal history of transient ischemic attack (TIA), and cerebral infarction without residual deficits; Z91.041 Radiographic dye allergy status; Z91.040 Latex allergy status; Z87.81 Personal history of (healed) traumatic fracture; Z82.49 Family history of ischemic heart disease and other diseases of the circulatory system; Z83.3 Family history of diabetes mellitus; Z87.891 Personal history of nicotine dependence; Z79.899 Other long term (current) drug therapy
CPT/HCPCS: 10100

== ENCOUNTER 2017-03-29 14:54 | Inpatient (IN) | payer OTHER, BC ==
[~2017-03-29] VITALS: Ht 160 cm; Wt 59.3 kg
--- NOTE | ~2017-03-29 | HC ---
[facility] [place] [address] CONSULTATION Name: JENKINSJASON Room #: 418-P ADM IN M.R.#: [id number] Admission: 03/30/17 Attend Phys: Joseph Sethi MD Discharge: Date of : 37 Report #: [id number] THIS REPORT FOR: //name// CC: Joseph Mills DATE OF SERVICE: 03/30/[address] Joseph Sethi. The patient is not a reliable historian for extensive history taking, but she is okay to answer short questions such as review of systems. The rest of this will be obtained from the patient's chart. HISTORY OF PRESENT ILLNESS: The patient is a very pleasant 81-year-old white female who is well known to me from previous evaluations and endoscopies and we were asked to evaluate for possible sources of iron deficiency anemia and blood loss. Her hemoglobin was 7 on admission. She has been taking Plavix and Lovenox prior to admission on 03/29/2017. It is uncertain if she has been passing any blood per stool or black stool she is not sure. She has a history of peptic ulcer disease that was associated with nausea and vomiting when she was scoped in the past. She was not having any obvious blood loss then and I believe this was back in 10/2014. She had a recent hip fracture repair and has also had a history of a fractured ankle. PAST MEDICAL HISTORY: She also has history of COPD, coronary artery disease with stents, hypertension. She had a history of pulmonary nodules and weight loss. She has also had a T7 vertebral compression fracture. PAST SURGICAL HISTORY: Significant for cholecystectomy, hysterectomy, bladder sling and she has had a right ankle fracture repair, recently a hip fracture repair. ALLERGIES: To CODEINE and PENICILLIN. MEDICATIONS: Prior to admission are as follows: Acetaminophen, Lipitor, Tums, vitamin D, Plavix, Lovenox, iron sulfate, Razadyne, Mucinex, DuoNeb, melatonin, Protonix, Paxil, Altace, vitamin B12. SOCIAL HISTORY: I believe that the patient is a custodial resident. She was still smoking in 2014. FAMILY HISTORY: Not obtainable. IMPRESSION: [facility] [address] [place] [address] CONSULTATION Name: JASON JENKINS Ana [facility]: 418[facility] IN ..#: [id number] Admission: 03/30/17 Attend Phys: Joseph Sethi MD Discharge: Date of : 37 Report #: [id number] 1. Anemia of uncertain etiology, thought to be due to gastrointestinal blood loss. 2. Hypertension. 3. Chronic obstructive pulmonary disease. 4. Malnutrition. 5. History of pulmonary nodules. 6. Mild forgetfulness and confusion. 7. Recent hip fracture and repair about 2 weeks ago. 8. Coronary artery disease, she has one stent. 9. Status post cholecystectomy, hysterectomy, a bladder sling surgery as well as repair of a right ankle fracture. RECOMMENDATIONS: To proceed with an EGD at this time to evaluate for sources of blood loss on the top side. If that it unrevealing, I would recommend that she proceed to at least an M2 capsule study. She is getting quite frail now at 81 years of age and I am not certain she can tolerate a colon prep very well, but I will leave that to Dr. Sethi and the patient's family to decide as I do not think the patient herself can probably make those decisions on her own. Thank you very much once again for allowing me to participate in her care. <ELECTRONICALLY SIGNED> By: Lacy Ennis DO 03/30/17 1426 1253 1400 Lacy Ennis DO /nt
--- NOTE | ~2017-03-29 | H ---
[facility] [place] [address] HISTORY AND PHYSICAL Name: JASON JENKINS Room #: 418-P [facility] Jessica#: [id number] Admission: 03/29/17 Attend Phys: Joseph Sethi MD Discharge: Date of : 37 Report #: [id number] THIS REPORT FOR: //name// CC: Joseph Mills DATE OF SERVICE: 03/30/2017 CHIEF COMPLAINT: Symptomatic anemia. HISTORY OF PRESENT ILLNESS: The patient is a 81-year-old female who was admitted from the advanced care skilled facility for having a significant drop in her hemoglobin. The patient was admitted at [facility] recently for a left hip fracture from a fall in her home. This was repaired by Dr. Louise and [facility]. She apparently developed some anemia, was admitted back to [facility] last week with hemoglobin in the upper 6 range. She was transfused, hemoglobin improved up to 10 and she was sent back to advanced care on Monday. Her hemoglobin was monitored there and again dropped down in the 6.7 range. The patient had had some abdominal pain. She does have some weakness and some falls. There is no source identified for her bleeding on the re-admission. I spoke with the nursing providers at [facility] and they requested that I admit her for further evaluation for this anemia. Her primary care is Dr. Tyler Jones and he does not have privileges here at [facility] for admissions. The patient is awake and alert and she is the primary historian. She reports she has had some abdominal pain, but it is actually improved. She is not aware of any bowel changes. She anemia in the past, she said over a year ago and somebody for that but she does not remember who. She does not recall if she has had endoscopies or not. She does state she took iron for some time, but has not been recently. PAST MEDICAL HISTORY: Significant for: 1. Coronary artery disease with prior stents. She is on Plavix. She does not require a commissioning specialist. 2. History of hyponatremia. 3. Hypertension. 4. COPD. 5. Prior ankle fracture. 6. Prior cholecystectomy. 7. Prior hysterectomy. FAMILY HISTORY: No premature coronary artery disease or diabetes. SOCIAL HISTORY: Prior smoker, no alcohol or recreational drugs. MEDICATIONS: List includes the Plavix which was recently stopped, iron which [facility] [address] [place] [address] HISTORY AND PHYSICAL Name: JASON JENKINS Room #: 418-P [facility] Ellis Lopez#: [id number] Admission: 03/29/17 Attend Phys: Joseph Sethi MD Discharge: Date of : 37 Report #: [id number] was fairly new, B12 daily orally, Tylenol p.r.n., atorvastatin 40 mg a day, calcium daily, galantamine ER 60 mg a day, Paxil 10 mg a day and DuoNeb b.i.dPedro REVIEW OF SYSTEMS: CONSTITUTIONAL: She denies fevers or chills. HEENT: No headaches or visual changes. CHEST: No chest pain, tightness in the chest, shortness of breath, cough or sputum production. She apparently had some history of a possible pneumonia, although subsequent x-rays have been negative. She was treated briefly with antibiotics, but has not completed a full course. GASTROINTESTINAL: No nausea, vomiting or diarrhea, no bowel changes. GENITOURINARY: No burning or frequency. EXTREMITIES: No new swelling. She has left hip pain from the fracture. SKIN: She has a wound from her fracture; it is not red or draining. NEUROLOGIC: No focal numbness or weakness. PHYSICAL EXAMINATION: VITAL SIGNS: On admission, her blood pressure was 155/83. She was afebrile, pulse was 89. She has had a T-max of 99.8 overnight. Her O2 sat was 95% on room air. GENERAL: She is awake and alert, in no distress. Her mucous membranes are moist. NECK: Supple, without adenopathy, thyromegaly or bruits. CHEST: Clear to auscultation on the left. There are some crackles on the right and some upper airway noise, no wheezes. ABDOMEN: Soft, not distended, mild tenderness in the left lower quadrant. No rebound or guarding. Bowel sounds are active. There is no hepatosplenomegaly. EXTREMITIES: The incision on the left hip is nicely healed. It is not red or draining, it is mildly tender. There is slight edema on the left leg versus the right. Her pulses are intact, her motor is equal bilaterally and sensory is equal bilaterally. LABORATORY DATA: Sodium was 128 which is consistent with her recent sodium. Her potassium is 3.4, also consists of recent postassium. Chloride 94, bicarbonate 28, BUN 18, creatinine 1.2, glucose 109, AST 21. Total bilirubin 1.6 and calcium 8.0. INR was 1.0 last time. Hemoglobin on admission here was 7.5, it was 6.8 in the outpatient setting. White blood cell count was 8.5, hematocrit 21.6, platelet count 352, 73 segs, no bands and 11 lymphs. Urinalysis shows specific gravity of 1.010, pH of 5, negative for blood, red cells and white cells. Chest x-ray shows no acute process. CT head shows no acute process. ASSESSMENT AND PLAN: 1. Anemia with acute drop in hemoglobin in a postop period. Etiology unclear. She had just recently started on Protonix, certainly at risk for ulceration in light of her recent stressors and in fact she had been on been Plavix, which is [facility] [address] [place] [address] HISTORY AND PHYSICAL Name: JASON JENKINS Room #: 418-P [facility]#: [id number] Admission: 03/29/17 Attend Phys: Joseph Sethi MD Discharge: Date of : 37 Report #: [id number] being held now. We will consult GI. We will transfuse 2 units of packed red blood cells and monitor her hemoglobin, continue the Protonix for now. If the upper GI scope is negative, we will consider lower GI scope workup, although she has not seen any bright red blood, I think it is unlikely the bleeding source is there. If the scopes are negative, then consider hematology evaluation for hemolysis or add an LDH level as well. 2. Chronic obstructive pulmonary disease. Continue breathing treatments, no active pneumonia, would not add any antibiotics at this time. 3. Hyponatremia. It appears to be chronic, possibly on the basis of her chronic obstructive pulmonary disease. She is not on any diuretics, it seems stable. We will monitor. 4. Hypokalemia, same as above. 5. Mild dementia, continue Razadyne. 6. Anxiety, continue Paxil. 7. Recent left hip fracture. We will get PT and OT involved. We would like to get her back into the skilled facility as soon as possible. By: [id number] Joseph Sethi MD /nt
--- NOTE | ~2017-03-29 | P ---
[facility] [place] [address] PROCEDURE REPORT Name: JASON JENKINS Room #: 418-P [facility] IN M.R.#: [id number] Admission: 03/30/17 Attend Phys: Joseph Sethi MD Discharge: 04/03/17 Date of : 37 Report #: [id number] THIS REPORT FOR: //name// CC: Joseph Mills BRIEF HISTORY: The patient is a 81-year-old woman with anemia and drop in hemoglobin. She has been treated with iron for several years. PREOPERATIVE DIAGNOSES: Anemia, on iron therapy with recent drop in hemoglobin. POSTOPERATIVE DIAGNOSES: 1. A 5-mm sessile rectal polyp. 2. Moderately severe sigmoid diverticulosis coli. 3. Small internal hemorrhoids. MEDICATIONS: Deep sedation with propofol per anesthesia. SPECIMEN: Rectal polyp. ESTIMATED BLOOD LOSS: 3 mL. PROCEDURE: Colonoscopy to cecum and terminal ileum with snare polypectomy. FINDINGS: Prior to propofol sedation, procedure of colonoscopy discussed with the patient as well as potential risks, benefits, and complications. She indicates she understands and desires to proceed. With the patient in left lateral decubitus position, digital examination was completed, which revealed no abnormalities. Subsequently, the [employer] video colonoscope was introduced into the rectum and advanced under direct vision to the cecum. Done with minimal difficulty. The cecum was identified by the ileocecal valve and the appendiceal orifice. I was able to visualize the distal segment of terminal ileum, which was inspected and noted to be within normal limits. At that point, the scope was slowly withdrawn and careful circumferential views obtained including retroflexing the scope in the ascending colon. Upon slow withdrawal of the scope, the mucosa was inspected. The mucosa was within normal limits, normal vascular pattern, and normal light reflex. As the scope was withdrawn, the mucosa remained normal. No bleeding lesions were seen. No blood was seen during this examination. As we withdrew the scope, no abnormalities were seen until the left colon was reached at which point she was noted to have moderately severe diverticular disease without endoscopic evidence of diverticulitis. Scope was withdrawn in the rectum and a 5-mm sessile polyp was seen and removed by cold snare polypectomy. Polyp was removed without difficulty. Upon retroflexion, small internal hemorrhoids were seen. Scope was withdrawn. The patient tolerated the procedure well. [address] [address] PROCEDURE REPORT Name: JASON JENKINS Room #: 418-P [facility] IN .R.#: [id number] Admission: 03/30/17 Attend Phys: Joseph Sethi MD Discharge: 04/03/17 Date of : 37 Report #: [id number] DISPOSITION: We will follow up on the pathology of the polyp. However, this appeared to be a small benign adenoma and likely minimal significance to her, I doubt that this lesion was her anemia. However, we will follow up on the path and make further recommendations. At this point in life, there is likely not to be any benefit from surveillance colonoscopy, therefore we would pursue colonoscopy only on an as needed basis. It is noted on her lab that she does have an elevated bilirubin with a normal ultrasound and normal transaminases, she also has an elevated LDH, which raised the question of hemolysis. We will fractionate her bilirubin and obtain a reticulocyte count. For further evaluation, we would also consider evaluation for the hemolytic anemia. <ELECTRONICALLY SIGNED> By: Anam Baig MD 04/04/17 1216 0905 1109 Anam Baig MD /nt
--- NOTE | ~2017-03-29 | S ---
[facility] [place] [address] SURGICAL PATH RPT PROCEDURE Name: KIMBERLY JENKINS Ana Room #: 418-P [facility] IN M.R.#: [id number] Admission: 03/30/17 Date of : 39 Discharge: 04/03/17 Report #: [id number] Path Case #: [id number] PATHOLOGY REPORT COLLECTION DATE: 04/03/2017 RECEIVED DATE: 04/03/2017 SUBMITTING PHYS: Dr. Anam Baig OTHER PHYS: Dr. Joseph Mills SPECIMEN(S) RECEIVED: A.Polyp at rectum * * * * * * * * * * * * FINAL DIAGNOSIS: Polyp, rectal polyp, endoscopic biopsy: - Tubular adenoma. - Negative for high-grade dysplasia. PATHOLOGIST: Uzma Myles M.D. REPORT ELECTRONICALLY SIGNED BY: Uzma Myles M.D. DATE/TIME: 04/05/2017 16:23 * * * * * * * * * * * * GROSS PATHOLOGY: Received in formalin labeled "Kimberly Jenkins, rectal polyp," is a segment of jesus soft tissue measuring 0.6 cm in maximum dimension. The specimen is submitted entirely in cassette A1. (KAH; 04/04/2017) CLINICAL HISTORY: Pre-op diagnosis: Anemia, abdominal pain Post-op diagnosis: Colon polyp, diverticulosis, hemorrhoids INITIAL CPT CODE(S): A; 39938 Professional services performed by [facility] at [facility] [address] [place] [address] Technical services performed by [facility] at [address] [place] [address], [address], [place] [address]. [facility] [address] [place] [address] SURGICAL PATH RPT PROCEDURE Name: KIMBERLY JENKINS Room #: 418-P [facility] IN M.R.#: [id number] Admission: 03/30/17 Date of : 39 Discharge: 04/03/17 Report #: [id number] Path Case #: [id number] [facility] [address] [place] [id number] PHONE: [phone] DIRECTOR: Ray Young M.D. * * * END OF REPORT * * *
--- NOTE | ~2017-03-29 | P ---
[facility] [place] [address] PROCEDURE REPORT Name: JASON JENKINS Room #: 418-P [facility] IN M.R.#: [id number] Admission: 03/30/17 Attend Phys: Joseph Sethi MD Discharge: Date of : 37 Report #: [id number] THIS REPORT FOR: //name// CC: Joseph Mills DATE OF SERVICE: 03/30/2017 PROCEDURE: Diagnostic EGD. Patient of Dr. Joseph Sethi. INDICATION FOR PROCEDURE: Evaluate for possible sources of blood loss. The patient has been on Plavix and Lovenox prior to admission. She does not think she has had any blood in her stools. She has been on iron recently, so her stools are black. EGD is being performed to see if we can identify a source of blood loss. DESCRIPTION OF PROCEDURE: Informed consent for this procedure was obtained prior to the administration of any medication. The risks of the procedure which include bleeding, perforation, infection, complications of sedation and the possibility I could miss something have been explained to the patient and she has indicated her consent to proceed with EGD. I think she does understand what I was explaining to her. The [facility] upper videoscope was introduced through the upper esophageal sphincter and advanced under direct visualization to the descending duodenum. Findings are noted on withdrawal of the scope. The duodenal mucosa appears normal throughout its entirety. Pylorus, normal mucosa. Antrum, normal mucosa. Body, normal mucosa. Cardia and fundus, normal mucosa. Retroflex view did not reveal any abnormalities. The scope was withdrawn to the esophagus. Esophageal mucosa appears normal throughout its entirety. The scope was withdrawn. The patient went to the recovery room in stable condition. She tolerated the procedure well. IMPRESSION: Normal EGD to descending duodenum. No source of blood loss identified in the upper GI tract. My recommendations are to consider colonoscopy if you think she can tolerate the prep and the procedure. Otherwise, we might just proceed to M2 capsule study or the other alternative would be to just simply give her iron IV loading and monitor her iron levels and CBC throughout the year 4 times and replace iron further as needed. She is very frail. She may not do well with colonoscopy prep or a colonoscopy. [address] [address] PROCEDURE REPORT Name: JASON JENKINS Ana Room #: 418-P [facility] IN ..#: [id number] Admission: 03/30/17 Attend Phys: Joseph Sethi MD Discharge: Date of : 37 Report #: [id number] Thank you very much once again for allowing me to participate in her care, Dr. Sethi. <ELECTRONICALLY SIGNED> By: Lacy Ennis DO 03/30/17 1452 1256 1430 Lacy Ennis DO /nt
[~2017-03-29 14:54] MED LIST changes: +ACID REDUCER20 MG PO; +HYDROCODON-ACE1 EAC7 PO; +IRON325 PO; +LEVAQUIN 500 M500 M2 PO; +MUCINEX TA600 MG/TA2 PO; +PROTONIX40 M2 PO
[2017-03-29 16:20] VITALS: BP 126/55
[2017-03-29 17:56] LABS: ALBUMIN 2.7 g/dL (3.4-5.0); CREATININE 1.2 mg/dL (0.6-1.0); POTASSIUM 3.4 mmol/L (3.5-5.1); TOTAL BILIRUBIN 1.6 mg/dL (<0.1-1.0); TOTAL PROTEIN 5.7 g/dL (6.4-8.2)
[2017-03-29 18:11] LABS: HEMATOCRIT 21.6 % (37.0-47.0); HEMOGLOBIN 7.5 gm/dL (12.0-15.0); MCH 30.3 pg (26.0-34.0); MCHC 34.8 g/dL (28.0-37.0); MCV 87.1 fL (80.0-100.0); RBC 2.48 mil/uL (4.20-5.00); WBC 8.5 thou/uL (4.0-11.0)
[2017-03-29 20:00] VITALS: BP 148/62
[2017-03-29 21:32] VITALS: BP 122/42; BP 144/70
[2017-03-29 23:59] LABS: URINE BILIRUBIN NEGATIVE (Negative); URINE BLOOD NEGATIVE (Negative); URINE COLOR YELLOW; URINE GLUCOSE-RANDOM* NEGATIVE (Negative); URINE KETONES NEGATIVE (Negative); URINE LEUKOCYTES-REFLEX NEGATIVE (Negative); URINE PROTEIN (DIPSTICK) NEGATIVE (Negative); URINE UROBILINOGEN 0.2 E.U./dl (0.2-1.0)
[2017-03-30 02:20] VITALS: BP 155/83; BP 157/70
[2017-03-30 05:39] VITALS: BP 155/83
[2017-03-30 07:19] VITALS: BP 112/70
[2017-03-30 08:56] LABS: HEMATOCRIT 31.9 % (37.0-47.0); HEMOGLOBIN 10.8 gm/dL (12.0-15.0); MCH 30.1 pg (26.0-34.0); MCV 88.6 fL (80.0-100.0); RBC 3.6 mil/uL (4.20-5.00); RDW 15.8 % (10.5-14.5); WBC 7.9 thou/uL (4.0-11.0)
[2017-03-30 11:16] LABS: % SATURATION 20 % (20-39); IRON 48 ug/dL (50-170); TIBC 242 ug/dL (250-450); UIBC 194 ug/dL
[2017-03-30 13:37] VITALS: BP 174/91
[2017-03-30 15:20] VITALS: BP 148/60
[2017-03-30 20:00] VITALS: BP 120/76
[2017-03-31 04:08] VITALS: BP 146/72
[2017-03-31 04:08] LABS: HEMATOCRIT 31.1 % (37.0-47.0); HEMOGLOBIN 10.7 gm/dL (12.0-15.0)
[2017-03-31 08:00] VITALS: BP 149/78
[2017-03-31 16:00] VITALS: BP 120/65
[2017-03-31 20:00] VITALS: BP 123/80
[2017-04-01 04:00] VITALS: BP 136/90
[2017-04-01 04:59] LABS: HEMATOCRIT 30.5 % (37.0-47.0); HEMOGLOBIN 10.5 gm/dL (12.0-15.0); MCH 30.5 pg (26.0-34.0); MCHC 34.3 g/dL (28.0-37.0); MCV 88.9 fL (80.0-100.0); RBC 3.44 mil/uL (4.20-5.00); RDW 15.9 % (10.5-14.5); WBC 10.6 thou/uL (4.0-11.0)
[2017-04-01 07:07] VITALS: BP 157/96
[2017-04-01 09:24] LABS: ALBUMIN 2.9 g/dL (3.4-5.0); CALCIUM 8.6 mg/dL (8.5-10.1); CREATININE 1.1 mg/dL (0.6-1.0); POTASSIUM 3.8 mmol/L (3.5-5.1); TOTAL BILIRUBIN 1.9 mg/dL (<0.1-1.0); TOTAL PROTEIN 6.1 g/dL (6.4-8.2)
[2017-04-01 20:00] VITALS: BP 148/75
[2017-04-02 04:30] VITALS: BP 167/75
[2017-04-02 07:36] VITALS: BP 167/98
[2017-04-02 16:56] VITALS: BP 154/104
[2017-04-02 19:40] VITALS: BP 200/98
[2017-04-02 20:06] VITALS: BP 158/79
[2017-04-03 03:52] VITALS: BP 167/90
[2017-04-03 08:27] LABS: HEMATOCRIT 31.7 % (37.0-47.0); HEMOGLOBIN 10.8 gm/dL (12.0-15.0); MCH 30.5 pg (26.0-34.0); MCHC 34.2 g/dL (28.0-37.0); MCV 89.2 fL (80.0-100.0); RBC 3.55 mil/uL (4.20-5.00); RDW 15.9 % (10.5-14.5); WBC 6.1 thou/uL (4.0-11.0)
[2017-04-03 09:34] LABS: ABSOLUTE RETIC COUNT 0.0926 10^6/uL; OBSERVED RETIC COUNT 2.64 % (0.6-2.6)
[2017-04-03 09:41] LABS: DIRECT BILIRUBIN 0.5 mg/dL (<0.1-0.3); TOTAL BILIRUBIN 1.7 mg/dL (<0.1-1.0)
[2017-04-03 15:11] VITALS: BP 167/90
[2017-04-03 15:24] VITALS: BP 167/90
== END 2017-04-03 15:48 | disposition home health service (06) | DRG 811 ==
LOC: 4E 14:54
PROVIDERS: Family Medicine; Internal Medicine Gastroenterology; Nurse Practitioner Adult Health; Specialist
PROC: 0DJ08ZZ Inspection of Upper Intestinal Tract, Via Natural or Artificial Opening Endoscopic (ICD-10-PCS; principal; 2017-03-30)
PROC: 30233N1 Transfusion of Nonautologous Red Blood Cells into Peripheral Vein, Percutaneous Approach (ICD-10-PCS; 2017-03-30)
PROC: 0DBP8ZZ Excision of Rectum, Via Natural or Artificial Opening Endoscopic (ICD-10-PCS; 2017-04-03)
DX: D50.9 Iron deficiency anemia, unspecified (principal); E43 Unspecified severe protein-calorie malnutrition; J96.01 Acute respiratory failure with hypoxia; J18.9 Pneumonia, unspecified organism; E87.1 Hypo-osmolality and hyponatremia; J44.1 Chronic obstructive pulmonary disease with (acute) exacerbation; J44.0 Chronic obstructive pulmonary disease with (acute) lower respiratory infection; K57.30 Diverticulosis of large intestine without perforation or abscess without bleeding; I25.10 Atherosclerotic heart disease of native coronary artery without angina pectoris; I10 Essential (primary) hypertension; E87.6 Hypokalemia; F03.90 Unspecified dementia, unspecified severity, without behavioral disturbance, psychotic disturbance, mood disturbance, and anxiety; I16.0 Hypertensive urgency; K62.1 Rectal polyp; F41.9 Anxiety disorder, unspecified; Z68.23 Body mass index [BMI] 23.0-23.9, adult; K64.8 Other hemorrhoids; Z88.6 Allergy status to analgesic agent; Z91.040 Latex allergy status; Z90.49 Acquired absence of other specified parts of digestive tract; Z91.041 Radiographic dye allergy status; Z90.710 Acquired absence of both cervix and uterus; Z87.81 Personal history of (healed) traumatic fracture; Z98.62 Peripheral vascular angioplasty status; Z87.891 Personal history of nicotine dependence; Z88.0 Allergy status to penicillin
CPT/HCPCS: 10183; 62110; 62900; 70005

== ENCOUNTER 2017-12-10 09:33 | Inpatient (IN) | payer OTHER, BC ==
[~2017-12-10] VITALS: Ht 157.5 cm; Wt 56.7 kg
[2017-12-10] VITALS (7 sets, daily range): BP systolic 106–174; BP diastolic 53–95
--- NOTE | ~2017-12-10 | EKG ---
[address] [place] [address] ELECTROCARDIOGRAM REPORT Name: JASON JENKINS QUIN Room #: 421-P [facility]..#: [id number] Admission: 12/10/17 Attend Phys: Chucky Baldwin MD Discharge: Date of : 39 Report #: [id number] THIS REPORT FOR: //name// [facility] ED Test Date: 2017-12-10 Test Time: 10:09:00 Pat Name: JASON JENKINS Department: Room: [facility] Gender: F Criminal Justice Professor: Kevin MCMAHAN : 1935 Requested By: Reagan Hare Order Number: [id number] MD: Kofi Loco Measurements Intervals [place] Rate: 65 P: 62 ID: [id number] QRS: -61 QRSD: 137 T: 15 QT: 481 QTc: 501 Interpretive Statements Sinus rhythm RBBB and LAFB Compared to ECG 09/04/2017 14:59:57 Left anterior fascicular block now present No significant change was found Electronically Signed On 12-11-2017 8:01:30 [employer] by Kofi Loco [email or web address] <ELECTRONICALLY SIGNED> By: Kofi Loco MD, [facility] 12/11/17 0801 [id number] Kofi Loco MD, [facility] /EPI
[~2017-12-10 09:33] MED LIST changes: +ASPIR 8181 MG PO; +ATIVAN0.5 MG PO; +PROAIR HFA8.5 GM INH
[2017-12-10 10:14] LABS: ABSOLUTE NEUTROPHILS 6.4 thou/uL (1.4-8.2); BASOPHILS 0.7 % (0.0-2.0); EOSINOPHILS 1.7 % (0.0-3.0); HEMATOCRIT 36.3 % (37.0-47.0); HEMOGLOBIN 12.3 gm/dL (12.0-15.0); LYMPHOCYTES 17.7 % (24.0-44.0); MCH 30.2 pg (26.0-34.0); MCV 88.7 fL (80.0-100.0); MONOCYTES 7.3 % (1.0-8.0); PLATELET COUNT 264 thou/uL (150-400); POLYS 72.6 % (36.0-66.0); RBC 4.09 mil/uL (4.20-5.00); RDW 13.6 % (10.5-14.5); WBC 8.8 thou/uL (4.0-11.0)
[2017-12-10 10:24] LABS: ANION GAP 4 mmol/L (7-16); BUN 21 mg/dL (7-18); CHLORIDE 99 mmol/L (98-107); CO2 31 mmol/L (21-32); CREATININE 1.5 mg/dL (0.6-1.0); GLUCOSE 101 mg/dL (74-106); POTASSIUM 3.6 mmol/L (3.5-5.1); SODIUM 134 mmol/L (136-145)
[2017-12-10 10:27] LABS: APTT 27.7 Seconds (24.5-32.8); PROTIME 10.5 Seconds (9.3-11.4)
[2017-12-10 10:32] LABS: ALBUMIN 3.6 g/dL (3.4-5.0); MAGNESIUM 2.1 mg/dL (1.8-2.4); SGOT 17 U/L (15-37); SGPT 17 U/L (30-65); TOTAL BILIRUBIN 0.6 mg/dL (<0.1-1.0); TOTAL PROTEIN 6.8 g/dL (6.4-8.2); TROPONIN-I < 0.04 ng/mL (<0.06)
[2017-12-10 11:27] LABS: URINE BILIRUBIN NEGATIVE (Negative); URINE BLOOD NEGATIVE (Negative); URINE CLARITY CLEAR; URINE COLOR YELLOW; URINE GLUCOSE-RANDOM* NEGATIVE (Negative); URINE KETONES NEGATIVE (Negative); URINE LEUKOCYTES-REFLEX NEGATIVE (Negative); URINE NITRITE-REFLEX NEGATIVE (Negative); URINE PROTEIN (DIPSTICK) NEGATIVE (Negative); URINE UROBILINOGEN 0.2 E.U./dl (0.2-1.0)
[2017-12-10 11:37] LABS: AMP/METHAMP Negative (Negative); BARBITURATES Negative (Negative); BENZODIAZEPINES Negative (Negative); COCAINE Negative (Negative); METHADONE Negative (Negative); OPIATES Negative (Negative); PCP Negative (Negative)
[2017-12-10] MEDS ORDERED: TRAMADOL 50 MG50 MG PO (11:39)
[2017-12-11 03:30] VITALS: BP 150/76
[2017-12-11 05:24] LABS: HEMATOCRIT 30.4 % (37.0-47.0); MCH 30.2 pg (26.0-34.0); MCV 88.8 fL (80.0-100.0); RBC 3.42 mil/uL (4.20-5.00); RDW 13.6 % (10.5-14.5)
[2017-12-11 05:33] LABS: HEMOGLOBIN 10.3 gm/dL (12.0-15.0)
[2017-12-11 05:42] LABS: CALCIUM 8.2 mg/dL (8.5-10.1); CREATININE 1.2 mg/dL (0.6-1.0); POTASSIUM 3.6 mmol/L (3.5-5.1)
[2017-12-11 07:13] VITALS: BP 147/94
[2017-12-11 16:09] VITALS: BP 158/9
[2017-12-11 19:40] VITALS: BP 133/47
[2017-12-12 04:05] VITALS: BP 151/94; BP 152/73; BP 173/86
[2017-12-12 05:32] LABS: HEMATOCRIT 28.7 % (37.0-47.0); HEMOGLOBIN 9.7 gm/dL (12.0-15.0); MCH 30.2 pg (26.0-34.0); MCHC 33.7 g/dL (28.0-37.0); MCV 89.7 fL (80.0-100.0); RBC 3.2 mil/uL (4.20-5.00); RDW 13.7 % (10.5-14.5); WBC 7.5 thou/uL (4.0-11.0)
[2017-12-12 05:41] LABS: ALBUMIN 2.9 g/dL (3.4-5.0); CREATININE 1.1 mg/dL (0.6-1.0); MAGNESIUM 1.9 mg/dL (1.8-2.4); POTASSIUM 3.4 mmol/L (3.5-5.1); TOTAL BILIRUBIN 0.7 mg/dL (<0.1-1.0); TOTAL PROTEIN 5.9 g/dL (6.4-8.2)
[2017-12-12 06:19] LABS: TSH 4.03 uIU/mL (0.358-3.740)
[2017-12-12 07:53] VITALS: BP 134/72
[2017-12-12 10:06] LABS: % SATURATION 18 % (20-39); IRON 30 ug/dL (50-170); TIBC 171 ug/dL (250-450)
[2017-12-12 17:33] VITALS: BP 182/101
[2017-12-12 18:20] VITALS: BP 155/88
[2017-12-12 20:00] VITALS: BP 156/92
[2017-12-13 04:00] VITALS: BP 153/80
[2017-12-13 07:35] VITALS: BP 169/89
[2017-12-13 15:56] VITALS: BP 124/85
[2017-12-13 21:00] VITALS: BP 146/97
[2017-12-14 04:30] VITALS: BP 148/91
[2017-12-14 08:42] VITALS: BP 152/76
[2017-12-14] MEDS ORDERED: AMLODIPINE BESYL5 M1 PO (13:50)
== END 2017-12-14 15:02 | DRG 604 ==
LOC: ER 09:33 → 4E 12:24 → EROBS 12:24 → 4E 13:39
PROVIDERS: Emergency Medicine; Hospitalist; Registered Nurse
DX: S30.1XXA Contusion of abdominal wall, initial encounter (principal); N17.0 Acute kidney failure with tubular necrosis; I12.9 Hypertensive chronic kidney disease with stage 1 through stage 4 chronic kidney disease, or unspecified chronic kidney disease; J44.9 Chronic obstructive pulmonary disease, unspecified; G43.909 Migraine, unspecified, not intractable, without status migrainosus; I71.4 Abdominal aortic aneurysm, without rupture; F03.90 Unspecified dementia, unspecified severity, without behavioral disturbance, psychotic disturbance, mood disturbance, and anxiety; N18.9 Chronic kidney disease, unspecified; Z79.899 Other long term (current) drug therapy; M62.84 Sarcopenia; D64.9 Anemia, unspecified; S20.20XA Contusion of thorax, unspecified, initial encounter; Z95.5 Presence of coronary angioplasty implant and graft; I25.2 Old myocardial infarction; Z90.710 Acquired absence of both cervix and uterus; Z90.49 Acquired absence of other specified parts of digestive tract; Z86.73 Personal history of transient ischemic attack (TIA), and cerebral infarction without residual deficits; Z88.6 Allergy status to analgesic agent; Z91.041 Radiographic dye allergy status; Z91.040 Latex allergy status; Z82.49 Family history of ischemic heart disease and other diseases of the circulatory system; Z83.3 Family history of diabetes mellitus; Z87.891 Personal history of nicotine dependence; Z79.82 Long term (current) use of aspirin; W18.39XA Other fall on same level, initial encounter; Y93.89 Activity, other specified; Y92.89 Other specified places as the place of occurrence of the external cause; Y99.8 Other external cause status

== ENCOUNTER 2018-02-16 10:10 | Inpatient (IN) | payer OTHER, BC ==
[~2018-02-16] VITALS: Ht 160 cm; Wt 59.0 kg
[~2018-02-16 10:10] MED LIST changes: +AMLODIPINE BESYL5 M1 PO
[2018-02-16 10:15] VITALS: BP 159/80
[2018-02-16] MEDS ORDERED: ZESTRIL5 MG PO (10:30)
[2018-02-16] MEDS ORDERED: XANAX 0.25 MG0.25 MG PO (10:31)
[2018-02-16 10:45] LABS: ABSOLUTE NEUTROPHILS 3.6 thou/uL (1.4-8.2); EOSINOPHILS 5.4 % (0.0-3.0); HEMATOCRIT 39.3 % (37.0-47.0); LYMPHOCYTES 21.4 % (24.0-44.0); MCH 29.7 pg (26.0-34.0); MONOCYTES 10.3 % (1.0-8.0); PLATELET COUNT 246 thou/uL (150-400); POLYS 61.9 % (36.0-66.0); RBC 4.37 mil/uL (4.20-5.00); RDW 14.3 % (10.5-14.5); WBC 5.7 thou/uL (4.0-11.0)
[2018-02-16 10:52] LABS: CALCIUM 9.6 mg/dL (8.5-10.1); CREATININE 1.6 mg/dL (0.6-1.0); POTASSIUM 4.8 mmol/L (3.5-5.1)
[2018-02-16 10:58] LABS: DIRECT BILIRUBIN 0.2 mg/dL (<0.1-0.3); TOTAL BILIRUBIN 0.5 mg/dL (<0.1-1.0); TOTAL PROTEIN 7.2 g/dL (6.4-8.2)
[2018-02-16 11:12] LABS: URINE BILIRUBIN NEGATIVE (Negative); URINE BLOOD NEGATIVE (Negative); URINE CLARITY CLEAR; URINE COLOR YELLOW; URINE GLUCOSE-RANDOM* NEGATIVE (Negative); URINE KETONES NEGATIVE (Negative); URINE LEUKOCYTES NEGATIVE (Negative); URINE NITRITE NEGATIVE (Negative); URINE PROTEIN (DIPSTICK) NEGATIVE (Negative); URINE SPECIFIC GRAVITY <= 1.005 (1.005-1.035); URINE UROBILINOGEN 0.2 E.U./dl (0.2-1.0)
[2018-02-16 13:20] VITALS: BP 136/67
[2018-02-16 13:23] LABS: MAGNESIUM 2.2 mg/dL (1.8-2.4)
[2018-02-16 13:54] LABS: TSH 3.56 uIU/mL (0.358-3.740)
[2018-02-16 15:12] VITALS: BP 180/89
[2018-02-16 16:34] VITALS: BP 149/82
[2018-02-16 18:58] VITALS: BP 161/80
[2018-02-17 04:03] VITALS: BP 156/84
[2018-02-17 04:44] LABS: HEMATOCRIT 38.6 % (37.0-47.0); HEMOGLOBIN 12.8 gm/dL (12.0-15.0); MCH 29.8 pg (26.0-34.0); MCHC 33.2 g/dL (28.0-37.0); MCV 89.8 fL (80.0-100.0); RBC 4.3 mil/uL (4.20-5.00); RDW 14.4 % (10.5-14.5); WBC 4.8 thou/uL (4.0-11.0)
[2018-02-17 04:55] LABS: CALCIUM 8.9 mg/dL (8.5-10.1); CREATININE 1.3 mg/dL (0.6-1.0); POTASSIUM 4.1 mmol/L (3.5-5.1)
[2018-02-17 07:40] VITALS: BP 169/99
[2018-02-17 15:30] VITALS: BP 96/54
[2018-02-17 20:00] VITALS: BP 128/60
[2018-02-18 04:30] VITALS: BP 161/92
[2018-02-18 07:35] VITALS: BP 168/89
[2018-02-18 15:15] VITALS: BP 137/78
[2018-02-18 19:30] VITALS: BP 148/81
[2018-02-19 05:27] VITALS: BP 176/99
[2018-02-19 09:33] LABS: ABSOLUTE NEUTROPHILS 3.5 thou/uL (1.4-8.2); BASOPHILS 1.2 % (0.0-2.0); EOSINOPHILS 5.4 % (0.0-3.0); HEMATOCRIT 39.4 % (37.0-47.0); MCH 29.7 pg (26.0-34.0); MCHC 33.1 g/dL (28.0-37.0); MCV 89.6 fL (80.0-100.0); MONOCYTES 6.3 % (1.0-8.0); PLATELET COUNT 229 thou/uL (150-400); POLYS 67.1 % (36.0-66.0); RBC 4.39 mil/uL (4.20-5.00); RDW 14.4 % (10.5-14.5); WBC 5.2 thou/uL (4.0-11.0)
[2018-02-19 09:41] LABS: CALCIUM 8.9 mg/dL (8.5-10.1); CREATININE 1.3 mg/dL (0.6-1.0); POTASSIUM 3.7 mmol/L (3.5-5.1)
[2018-02-19] MEDS ORDERED: TRAZODONE HCL50 MG PO (12:00)
[2018-02-19] MEDS ORDERED: NORVASC10 MG PO (13:36)
[2018-02-19 16:00] VITALS: BP 166/76
[2018-02-19 16:01] VITALS: BP 176/99
== END 2018-02-19 18:35 | disposition home or self-care (01) | DRG 605 ==
LOC: ER 10:10 → EROBS 11:26 → 4W 11:26
PROVIDERS: Emergency Medicine; Hospitalist; Registered Nurse
DX: S51.819A Laceration without foreign body of unspecified forearm, initial encounter (principal); F03.91 Unspecified dementia, unspecified severity, with behavioral disturbance; N17.9 Acute kidney failure, unspecified; R29.6 Repeated falls; G43.909 Migraine, unspecified, not intractable, without status migrainosus; G44.89 Other headache syndrome; S09.90XA Unspecified injury of head, initial encounter; W01.0XXA Fall on same level from slipping, tripping and stumbling without subsequent striking against object, initial encounter; S00.83XA Contusion of other part of head, initial encounter; F03.90 Unspecified dementia, unspecified severity, without behavioral disturbance, psychotic disturbance, mood disturbance, and anxiety; G47.00 Insomnia, unspecified; N18.9 Chronic kidney disease, unspecified; R35.0 Frequency of micturition; I12.9 Hypertensive chronic kidney disease with stage 1 through stage 4 chronic kidney disease, or unspecified chronic kidney disease; R79.89 Other specified abnormal findings of blood chemistry; J44.9 Chronic obstructive pulmonary disease, unspecified; Z90.710 Acquired absence of both cervix and uterus; Z95.5 Presence of coronary angioplasty implant and graft; Z90.49 Acquired absence of other specified parts of digestive tract; Z88.6 Allergy status to analgesic agent; Z91.041 Radiographic dye allergy status; Z91.040 Latex allergy status; Y93.89 Activity, other specified; Y92.89 Other specified places as the place of occurrence of the external cause; Y99.8 Other external cause status; Z86.73 Personal history of transient ischemic attack (TIA), and cerebral infarction without residual deficits; Z87.891 Personal history of nicotine dependence; Z83.3 Family history of diabetes mellitus; Z79.82 Long term (current) use of aspirin; Z79.899 Other long term (current) drug therapy
CPT/HCPCS: 10045